=== PATIENT | female | born 1960 | race African-American/Black ===

== ENCOUNTER 2017-03-11 08:15 | Emergency (ER) | payer MEDICARE, MEDICAID ==
[~2017-03-11] VITALS: Ht 165.1 cm; Wt 91.0 kg
[2017-03-11] MEDS ORDERED: KETOROLAC 60MG/2ML VIAL IM ONE (09:30)
[2017-03-11 11:25] VITALS: BP 156/92
== END 2017-03-11 11:35 | disposition home or self-care (01) ==
LOC: ER 08:25
DX: M54.2 Cervicalgia (principal); M25.522 Pain in left elbow; I10 Essential (primary) hypertension; M54.5 Low back pain; R51 Headache
CPT/HCPCS: 70450; 72125; 73080; 96372; 99284; J1885; A4565

== ENCOUNTER 2025-01-29 22:28 | Emergency (ER) | payer MEDICARE, MEDICAID ==
[~2025-01-29] VITALS: Ht 160 cm; Wt 71.0 kg
[2025-01-29 22:29] VITALS: O2SAT 98
[2025-01-30] MEDS ORDERED: IBUPROFEN 400MG TABLET PO NR (04:15)
[2025-01-30 05:20] VITALS: BP 142/90; PULSE 80; RESP 12; TEMP 36.7; O2SAT 97
== END 2025-01-30 06:05 | disposition home or self-care (01) ==
LOC: ER 22:28
DX: S09.8XXA Other specified injuries of head, initial encounter (principal); M19.90 Unspecified osteoarthritis, unspecified site; I10 Essential (primary) hypertension; W01.0XXA Fall on same level from slipping, tripping and stumbling without subsequent striking against object, initial encounter; Y93.89 Activity, other specified; Y92.009 Unspecified place in unspecified non-institutional (private) residence as the place of occurrence of the external cause; Y99.8 Other external cause status
CPT/HCPCS: 99285